=== PATIENT | male | born 1975 | race African-American/Black ===

== ENCOUNTER 2017-11-08 09:38 | Emergency (ER) | payer OTHER ==
[~2017-11-08] VITALS: Ht 175.3 cm; Wt 141.0 kg
[~2017-11-08 09:38] MED LIST: ASPI81TA82 PO; B-COTAB41 PO; CEPH500C3 PO; CHRO200C PO; CINN500C7 PO; LISI-586 PO; ONDA4 PO; PERC5TAB12 PO; TAB-TAB PO; VITA500015 PO
[2017-11-08 09:43] VITALS: BP 164/99; PULSE 105; RESP 16; TEMP 99; O2SAT 97
[2017-11-08] MEDS ORDERED: LISI40TA PO (09:50)
[2017-11-08] MEDS ORDERED: ASPI-516 CHEW (09:50)
[2017-11-08] MEDS ORDERED: IBUPROFEN 800 MG TAB PO ONE (10:00)
--- NOTE | 2017-11-08 10:18 | PD ---
HPI Chief Complaint: Injury Time Seen by Provider: 10:12 Travel History International Travel<30 days: No Contact w/Intl Traveler<30days: No Traveled to known affect area: No History of Present Illness HPI 42-year-old male with PMH of CARLOS presents to the ED for evaluation of 6/10 right foot pain. Described as throbbing. Exacerbated by weightbearing. No alleviating factors reported. Onset late last night after the patient was running while he was intoxicated. He states that he thinks he stepped in a pothole and twisted his foot but is unsure. He has been able to walk with a lip since the accident. He denies numbness, tingling, weakness, limitations to range of motion of the area. He's never injured the foot before. No treatment attempted at home. PFSH Past Medical History Hx Anticoagulant Therapy: Yes (BABY ASPIRIN) Asthma: Yes Cancer: No Cardiovascular Problems: Yes Diabetes: Yes (PREDIABETIC- NO MEDS) Patient Takes Glucophage: No Diminished Hearing: No Glaucoma: No Hepatitis: No Hiatal Hernia: No Hypertension: Yes Respiratory: Yes (sleep apnea uses c-pap,asthma,sinus infection) Thyroid Disease: No Past Surgical History Abdominal Surgery: Yes (01/2010 UMBILICAL HERNIA REPAIR) Oral Surgery: Yes (uvulaectomy sinus surgery x2) Pacemaker: No Tonsillectomy: Yes Other Surgery: Yes (ADENOIDECTOMY) Family History Family Myocardial Infarction: Yes (BROTHER AT THE AGE OF 30 AND MOTHER IN 40'S) Social History Alcohol Use: Yes (very rare) Tobacco Use: No Substance Use: No Allergies-Medications (Allergen,Severity, Reaction): Coded Allergies: doripenem (Unverified Allergy, Severe, HIVES, 11/08/17) morphine (Unverified Allergy, Severe, RENAL, 11/08/17) Reported Meds & Prescriptions Reported Meds & Active Scripts Active Ibuprofen 800 Mg Tab 800 Mg PO Q8H Reported Aspirin 81 Mg Chew 81 Mg CHEW DAILY Lisinopril 40 Mg Tab 40 Mg PO DAILY Review of Systems Except as stated in HPI: all other systems reviewed are Neg Physical Exam Narrative GENERAL: Well-nourished, well-developed male in no acute distress. SKIN: Focused skin assessment warm/dry. HEAD: Normocephalic. EYES: No scleral icterus. No injection or drainage. NECK: Supple, trachea midline. No JVD or lymphadenopathy. CARDIOVASCULAR: Regular rate and rhythm without murmurs, gallops, or rubs. RESPIRATORY: Breath sounds equal bilaterally. No accessory muscle use. GASTROINTESTINAL: Abdomen soft, non-tender, nondistended. MUSCULOSKELETAL: No cyanosis, or edema. FOCUSED RIGHT LOWER EXTREMITY EXAM: 2+ DP pulse. No ecchymosis or edema noted. Tender to palpation on the navicular and medial malleolus. No other tenderness to palpation noted. Patient is able to the toes. He will to weakly flex and extend the ankle. Neurovascularly intact distally. BACK: Nontender without obvious deformity. No CVA tenderness. Data Data Last Documented VS Vital Signs Date Time Temp Pulse Resp B/P (MAP) Pulse Ox O2 Delivery O2 Flow Rate FiO2 11/08/17 09:43 99.0 105 16 164/99 (120) 97 Orders Orders Ibuprofen (Motrin) (11/08/17 10:00) Foot, Complete ([id number]) (11/08/17 09:58) Ice/Cold Pack (11/08/17 09:58) Crutches (11/08/17 10:28) Hector Bandage (11/08/17 10:28) MDM Medical Decision Making Medical Screen Exam Complete: Yes Emergency Medical Condition: Yes Differential Diagnosis Contusion versus sprain versus strain versus fracture versus Lisfranc injury versus other Narrative Course 42-year-old male with PMH of CARLOS presents to the ED for evaluation of 6/10 right foot pain. Onset late last night after the patient was running while he was intoxicated. He states that he thinks he stepped in a pothole and twisted his foot but is unsure. He has been ambulatory with a limp. Vitals reviewed. Physical exam reveals tenderness to palpation of the navicular and medial malleolus but is otherwise unremarkable. Ice pack was applied. Patient was administered 800 mg ibuprofen. X-ray reveals no acute bony injury by radiology read. This is foot sprain. Patient's provided with an Hector wrap. He is provided with a pair crutches, Hector wrap was applied. He is prescribed a short course of anti-inflammatory medications and instructed to RICE the injured foot , return to normal, gentle activity as tolerated, follow up with business continuity management director should symptoms fail to resolve. He indicated understanding of instructions and is agreeable to the care plan. He is stable and discharged home. Diagnosis Primary Impression: Foot sprain Qualified Codes: S93.602A - Unspecified sprain of left foot, initial encounter Referrals: Lead Systems Developer Patient Instructions: Foot Sprain (ED), General Instructions Additional Instructions: Rest, ice, elevate the extremity. Apply ice no longer than 10-15 minutes per hour a few times a day. 800 mg ibuprofen up to 3 times a day as needed for pain. Stop taking ASPIRIN while treating with Ibuprofen. Resume aspirin after treatment. Toe-touch weightbearing as tolerated. Return to normal, gentle activity as tolerated. No running, jumping activities for the next few weeks. Follow up with the business continuity management director or orthopedist if symptoms fail to resolve. Return to the ED for any urgent or emergent medical condition. Med/Other Pt SpecificInfo: Prescription(s) given Scripts Ibuprofen (Ibuprofen) 800 Mg Tab 800 MG PO Q8H, #15 TAB 0 Refills Prov: Belinda Pro MD 11/08/17 Disposition: 01 DISCHARGE HOME Condition: Stable Carlyn Bowles Nov 08, 2017 10:18
[2017-11-08] MEDS ORDERED: IBUP1TAB7 PO (10:30)
--- NOTE | 2017-11-08 10:32 | RADRPT ---
EXAM DATE/TIME: 11/08/2017 10:06 [facility] COMPARISON: No previous studies available for comparison. INDICATIONS : Twist injury last night to right foot MEDICAL HISTORY : Hypertension. SURGICAL HISTORY : None. ENCOUNTER: Initial ACUITY: 2 days PAIN SCORE: 7/10 LOCATION: Right foot FINDINGS: 3 views of the right foot. Bone alignment within normal limits. No evidence of fracture. Medial and lateral soft tissue swelling of the hindfoot. CONCLUSION: No evidence of fracture. Sidney Post MD on November 08, 2017 at 10:28 Board Certified Radiologist. This report was verified electronically.
== END 2017-11-08 10:43 | disposition home or self-care (01) ==
LOC: PHEFT 09:38
DX: S93.602A Unspecified sprain of left foot, initial encounter (principal); J45.909 Unspecified asthma, uncomplicated; I10 Essential (primary) hypertension; X50.1XXA Overexertion from prolonged static or awkward postures, initial encounter; Y93.02 Activity, running; Z79.82 Long term (current) use of aspirin; Z88.5 Allergy status to narcotic agent
CPT/HCPCS: 73630; 99283; E0113

== ENCOUNTER → 2017-11-26 | Outpatient (CLI) | payer OTHER ==
[~2017-11-26] MED LIST changes: +ASPI-516 CHEW; -ASPI81TA82 PO; -B-COTAB41 PO; -CEPH500C3 PO; -CHRO200C PO; -CINN500C7 PO; +IBUP1TAB7 PO; -LISI-586 PO; +LISI40TA PO; -ONDA4 PO; -PERC5TAB12 PO; -TAB-TAB PO; -VITA500015 PO
[2017-11-26 14:03] LABS: HEMATOCRIT 42.3 % (39.0-51.0); HEMOGLOBIN 14.4 GM/DL (13.0-17.0); MEAN CELL VOLUME 84.8 FL (80.0-100.0); MEAN CORPUSCULAR HEMOGLOBIN 28.7 PG (27.0-34.0); MEAN CORPUSCULAR HGB CONC 33.9 % (32.0-36.0); MEAN PLATELET VOLUME 8.9 FL (7.0-11.0); PLATELET COUNT 254 TH/MM3 (150-450); RED BLOOD COUNT 4.99 MIL/MM3 (4.50-5.90); RED CELL DISTRIBUTION WIDTH 13.9 % (11.6-17.2); WHITE BLOOD COUNT 6.3 TH/MM3 (4.0-11.0)
[2017-11-26 14:31] LABS: CALCIUM 8.7 MG/DL (8.5-10.1); CREATININE 1.37 MG/DL (0.60-1.30)
[2017-11-26 14:32] LABS: PHOSPHORUS 3.7 MG/DL (2.5-4.9)
[2017-11-26 15:04] LABS: BILIRUBIN, URINE NEG (NEG); BLOOD, URINE NEG (NEG); GLUCOSE,URINE NEG (NEG); KETONE, URINE NEG (NEG); MUCUS URINE FEW /lpf (OCC); NITRITE,URINE NEG (NEG); URINE COLOR YELLOW (YELLW/STRAW); URINE LEUKOCYTE ESTERASE NEG (NEG)
== END ==
LOC: CLAB 13:20
PROVIDERS: ATTEND Internal Medicine Nephrology
DX: N18.3 Chronic kidney disease, stage 3 (moderate) (principal)
CPT/HCPCS: 36415; 80069; 81001; 85027

== ENCOUNTER → 2018-02-26 | Outpatient (CLI) | payer OTHER ==
[2018-02-26 09:06] LABS: BILIRUBIN, URINE NEG (NEG); BLOOD, URINE NEG (NEG); GLUCOSE,URINE NEG (NEG); KETONE, URINE NEG (NEG); NITRITE,URINE NEG (NEG); PH, URINE 6.5 (5.0-8.5); URINE COLOR YELLOW (YELLW/STRAW); URINE LEUKOCYTE ESTERASE NEG (NEG)
[2018-02-26 09:07] LABS: HEMATOCRIT 44.4 % (39.0-51.0); HEMOGLOBIN 14.8 GM/DL (13.0-17.0); MEAN CELL VOLUME 84.3 FL (80.0-100.0); MEAN CORPUSCULAR HEMOGLOBIN 28.1 PG (27.0-34.0); MEAN CORPUSCULAR HGB CONC 33.4 % (32.0-36.0); PLATELET COUNT 245 TH/MM3 (150-450); RED BLOOD COUNT 5.26 MIL/MM3 (4.50-5.90); RED CELL DISTRIBUTION WIDTH 14.4 % (11.6-17.2)
[2018-02-26 09:11] LABS: MUCUS URINE FEW /lpf (OCC)
[2018-02-26 09:23] LABS: PHOSPHORUS 3.5 MG/DL (2.5-4.9)
[2018-02-26 09:26] LABS: ALBUMIN 3.9 GM/DL (3.4-5.0); BICARBONATE 26.8 MEQ/L (21.0-32.0); CALCIUM 8.8 MG/DL (8.5-10.1); CREATININE 1.3 MG/DL (0.60-1.30)
== END ==
LOC: CLAB 08:37
PROVIDERS: ATTEND Internal Medicine Nephrology
DX: N18.3 Chronic kidney disease, stage 3 (moderate) (principal)
CPT/HCPCS: 36415; 80069; 81001; 85027